=== PATIENT | female | born 1950 | race Caucasian/White ===

== ENCOUNTER 2018-04-25 15:03 | Emergency (ER) | payer MEDICARE, OTHER ==
[~2018-04-25] VITALS: Ht 157.5 cm; Wt 55.0 kg
[2018-04-25] MEDS ORDERED: KEFLEX500 M1 PO (15:43)
[2018-04-25] MEDS ORDERED: DILTIAZEM HCL60 MG PO (15:51)
[2018-04-25] MEDS ORDERED: ATIVAN1 MG PO (15:52)
[2018-04-25] MEDS ORDERED: OMEPRAZOLE20 M2 PO (15:52)
[2018-04-25] MEDS ORDERED: TRAMADOL HCL50 MG PO (15:52)
[2018-04-25] MEDS ORDERED: TRAZODONE50 MG PO (15:53)
[2018-04-25] MEDS ORDERED: PAROXETINE HCL20 MG PO (15:53)
[2018-04-25 15:55] VITALS: BP 126/70
[2018-05-20] MEDS ORDERED: TRAMADOL HCL50 MG PO (10:13)
[2018-05-20] MEDS ORDERED: MEDDOSEPAK PO (10:14)
== END 2018-04-25 15:55 | disposition home or self-care (01) ==
LOC: ED 15:03
DX: L03.115 Cellulitis of right lower limb (principal); I10 Essential (primary) hypertension; F41.9 Anxiety disorder, unspecified; F17.210 Nicotine dependence, cigarettes, uncomplicated

== ENCOUNTER → 2018-05-20 | Outpatient (REF) | payer MEDICARE, OTHER ==
[~2018-05-20] MED LIST: ATIVAN1 MG PO; DILTIAZEM HCL60 MG PO; KEFLEX500 M1 PO; MEDDOSEPAK PO; OMEPRAZOLE20 M2 PO; PAROXETINE HCL20 MG PO; TRAMADOL HCL50 MG PO; TRAZODONE50 MG PO
[2018-05-20 09:35] LABS: BARBITURATES NEGATIVE (NEGATIVE); COCAINE NEGATIVE (NEGATIVE); METHADONE NEGATIVE (NEGATIVE); OXCYCODONE NEGATIVE (NEGATIVE); TETRAHYDROCANNABIONOL NEGATIVE (NEGATIVE); TRICYLIC ANTIDEPRESSANTS NEGATIVE (NEGATIVE)
[2018-05-20 09:36] VITALS: BP 134/96
== END | disposition home or self-care (01) ==
LOC: PAIN/MGT 09:15
PROVIDERS: ATTEND Anesthesiology Pain Medicine
DX: Z51.81 Encounter for therapeutic drug level monitoring (principal); Z79.891 Long term (current) use of opiate analgesic

== ENCOUNTER → 2018-05-20 | Outpatient (REF) | payer MEDICARE, OTHER | END | disposition home or self-care (01) | LOC: CT 10:30 | PROVIDERS: ATTEND Anesthesiology Pain Medicine | DX: R07.89 Other chest pain (principal); J98.11 Atelectasis ==

== ENCOUNTER → 2018-05-27 | Outpatient (REF) | payer MEDICARE, OTHER ==
[2018-05-27 10:26] VITALS: BP 139/86
== END | disposition home or self-care (01) ==
LOC: PAIN/MGT 10:02
PROVIDERS: ATTEND Anesthesiology Pain Medicine
DX: Z09 Encounter for follow-up examination after completed treatment for conditions other than malignant neoplasm (principal)

== ENCOUNTER 2018-10-01 07:51 | Emergency (ER) | payer MEDICARE, OTHER ==
[~2018-10-01] VITALS: Ht 157.5 cm; Wt 59.1 kg
[2018-10-01 08:32] LABS: HEMATOCRIT 38.1 % (37.0-47.0); HEMOGLOBIN 12.3 g/dl (12.0-16.0); IMMATURE GRANULOCYTES 0.4 % (0.0-5.0); MEAN CELL VOLUME 90.5 fL CALC (80.0-100.0); MEAN CORPUSCULAR HGB 29.2 pG CALC (26.0-32.0); MEAN CORPUSCULAR HGB CONC 32.3 g/L CALC (32.0-36.0); NEUT# 6.08 thou/uL (2.00-7.15); RED BLOOD COUNT 4.21 mill/uL (4.20-5.60)
[2018-10-01 08:46] LABS: ANION GAP 11 (6-22 (CALC)); BUN 18 mg/dL (8-23); BUN/CREATININE RATIO 26 (12-20 (CALC)); CARBON DIOXIDE 26 mmol/l (22-30); CHLORIDE 108 mmol/l (95-108); CREATININE 0.7 mg/dL (0.5-1.0); GFR > 60 ML/MIN (>=60 (CALC)); GFR FOR AFR.AMER. > 60 ML/MIN (>=60 (CALC)); SODIUM 141 mmol/l (137-146)
[2018-10-01] MEDS ORDERED: VOLTAREN - GENE75 MG PO (09:03)
[2018-10-01] MEDS ORDERED: DOXYCYCL HYC100 MG PO (09:03)
[2018-10-01 09:24] VITALS: BP 140/53
== END 2018-10-01 09:27 | disposition home or self-care (01) ==
LOC: ED 07:51
PROVIDERS: Family Medicine
DX: M77.9 Enthesopathy, unspecified (principal); S50.812A Abrasion of left forearm, initial encounter; F17.200 Nicotine dependence, unspecified, uncomplicated; W55.03XA Scratched by cat, initial encounter